=== PATIENT | female | born 1965 | race Caucasian/White ===

== ENCOUNTER 2020-01-28 14:03 | Emergency (ER) | payer MEDICAID ==
[~2020-01-28] VITALS: Ht 170.2 cm; Wt 58.1 kg
[2020-01-28 14:10] VITALS: BP_SYST 141
--- NOTE | 2020-01-28 14:19 | NUR ---
Patient to ER bed 3 to gown for evaluation. Side rails up. Report given to [place] MONTOYA.
--- NOTE | 2020-01-28 14:20 | NUR ---
Pt came to low abd pain x2 days no other complaints, resting in [facility], on monitor awaiting MD.
--- NOTE | 2020-01-28 14:25 | NUR ---
ER at bedside examining patient.
--- NOTE | 2020-01-28 15:30 | NUR ---
Pt resting in [facility] at this time, no distress noted.
[2020-01-28 16:30] LABS: BILIRUBIN,URINE NEGATIVE (NEGATIVE); CLARITY/URINE CLEAR (CLEAR); COLOR,URINE YELLOW (YELLOW); GLUCOSE,URINE NEGATIVE (NEGATIVE); KETONES,URINE NEGATIVE (NEGATIVE); LEUKOCYTE ESTERASE ,URINE NEGATIVE (NEGATIVE); NITRITE, URINE NEGATIVE (NEGATIVE); PROTEIN URINE NEGATIVE (NEGATIVE); UROBILINOGEN,URINE 0.2 (0.2-1.0)
[2020-01-28] MEDS ORDERED: KETOROLAC TROMETHAMINE 30 MG VIAL IM ONE (16:45)
[2020-01-28 16:47] LABS: BLOOD, URINE NEGATIVE (NEGATIVE)
--- NOTE | 2020-01-28 17:17 | NUR ---
Pt resting in [facility] at this time, on monitor, VSS
[2020-01-28] MEDS ORDERED: MAGNESIUM CITRATE 300 ML ORAL SOLUTION PO ONE (17:45)
[2020-01-28 18:02] VITALS: BP_SYST 136
--- NOTE | 2020-01-28 18:03 | NUR ---
Patient given written and verbal discharge instructions and verbalizes understanding. ER MD discussed with patient the results and treatment provided. Patient in stable condition. ID arm band removed. IV catheter removed intact and dressing applied, no active bleeding. No Rx of given. Patient educated on pain management and to follow up with PMD. Pain Scale 0/10. Opportunity for questions provided and answered. Medication side effect fact sheet provided.
== END 2020-01-28 18:03 | disposition home or self-care (01) ==
LOC: SED 14:03
DX: K59.00 Constipation, unspecified (principal); R10.30 Lower abdominal pain, unspecified
CPT/HCPCS: 74176; 76376; 81003; 81025; 96374; 99284; J1885